=== PATIENT | female | born 1950 | race Caucasian/White ===

== ENCOUNTER 2017-12-09 08:25 | Emergency (ER) | payer OTHER ==
[~2017-12-09] VITALS: Ht 160 cm; Wt 67.1 kg
[~2017-12-09 08:25] MED LIST: AUGMENTIN 875 M1 TAB PO; CYCLOBENZAPRINE10 M1 PO; ESCITALOPRAM OX10 MG PO; FLEXERIL10 MG PO; LEVOTHYROXINE150 MCG PO; LIDODERM 5% PAT1 PAT OTHER; MOBIC15 MG PO; PRAVASTATIN SOD40 M2 PO; TRAZODONE HCL50 M1 PO; VICODIN 5-3001 EACH PO; ZOFRAN ODT4 M1 SL
--- NOTE | 2017-12-09 09:08 | ED HEAD/FACIAL INJ COMPLAINT ---
History of Present Illness General Chief Complaint: Fall Stated Complaint: FALL THIS AM/HEAD AND NOSE PAIN Source: patient Exam Limitations: no limitations Vital Signs & Intake/Output Vital Signs & Intake/Output Vital Signs Date Time Temp Pulse Resp B/P B/P Pulse O2 O2 Flow FiO2 Mean Ox Delivery Rate 12/09 0833 98.5 81 20 153/79 96 Room Air Allergies Coded Allergies: Sulfa (Sulfonamide Antibiotics) (Mild, HIVES 03/25/17) morphine (Mild, GI DISTRESS 03/25/17) Reconcile Medications Escitalopram Oxalate 10 MG TABLET 1 TAB PO DAILY MENTAL HEALTH (Reported) Levothyroxine Sodium 150 MCG TABLET 1 TAB PO DAILY AC THYROID (Reported) Ondansetron (Zofran Odt) 4 MG TAB.RAPDIS 1 TAB SL TID PRN nausea Pravastatin Sodium 40 MG TABLET 1 TAB PO QPM CHOLESTEROL (Reported) Trazodone HCl 50 MG TABLET 0.5 TAB PO QPM SLEEP (Reported) Triage Note: PT STATES SHE WAS HAVING A NIGHTMARE AT 0100 AND THRASHED HERSELF OUT OF THE BED ONTO THE CONCRETE FLOOR INJURING FOREHEAD, NOSE AND RIGHT EYE. PT STATES HER NOSE BLED QUITE A BIT X 1.5 HOURS. PT DENIES BLOOD THINNERS, DENIES LOC. 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 PT C/O H/A AND NAUSEA Triage Nurses Notes Reviewed? yes HPI: Patient is a 67-year-old female who presents today after a fall from bed with facial and right orbital trauma. She reports that she has nightmares, and that this happened previously approximately 8 months ago. She was having similar nightmares last night overnight and reports that she "thrashes" in bed, which is her reason for falling. This morning, she fell from bed and struck her face on her painted concrete floor. She has been placing pillows on the floor to prevent this type of injury, but unfortunately missed the pillows this morning. She experienced epistaxis and pain around the right orbit. Upon my initial encounter the patient is generally nontoxic and well-appearing, except for obvious facial trauma. She has right-sided periorbital ecchymosis and swelling over the nasal bridge. She is not on blood thinners and reports epistaxis and headache but no confusion or other neurologic symptoms. Past History Travel History Traveled to [place] past 21 day No Medical History Any Pertinent Medical History? see below for history Neurological: MENINGEOMA IN BRA[place] EENT: allergies Cardiovascular: hypertension Respiratory: NONE Gastrointestinal: NONE Hepatic: NONE Renal: NONE Musculoskeletal: NONE Psychiatric: NONE Endocrine: hypothyroidism Cancer(s): BRAIN STEM MENINGIOMA Tetanus Vaccine: 01/20/15 Surgical History Surgical History: non-contributory Psychosocial History Who do you live with Daughter Services at Home None What is your primary language Chadian Tobacco Use: Current Daily Use Daily Tobacco Use Amount/Type: => 5 Cigarettes daily ETOH Use: denies use Illicit Drug Use: denies illicit drug use Family History Hx Contributory? No Review of Systems Review of Systems Constitutional: Reports: see HPI. Denies: malaise, weakness. EENTM: Reports: see HPI, eye pain, epistaxis, nasal pain. Denies: blurred vision, double vision, visual changes, eye drainage, eye tearing, mouth pain, tooth pain. Respiratory: Reports: no symptoms. Cardiovascular: Reports: no symptoms. GI: Reports: no symptoms. Genitourinary: Reports: no symptoms. Musculoskeletal: Reports: no symptoms. Skin: Reports: no symptoms. Neurological/Psychological: Reports: see HPI, headache. Denies: ataxia, cognitive dysfunction, confusion, paresthesia. Hematologic/Endocrine: Reports: no symptoms. Immunologic/Allergic: Reports: no symptoms. All Other Systems: Reviewed and Negative Physical Exam Physical Exam General Appearance: well developed/nourished, no apparent distress, alert, awake Cranial Nerves: normal hearing, normal speech, PERRL Comments: General: The patient is grossly stable from a hemodynamic standpoint, in no acute distress. HEENT: There is obvious right-sided periorbital ecchymosis consistent with a unilateral raccoon eye versus direct hemorrhage from the trauma. Tenderness to the bony orbit and to the nasal bridge. Resolved epistaxis. Ophtho: Extraocular motion is painless and intact, without proptosis, visual changes, blurred vision subjectively, or evidence of direct eye trauma. Pupils are equal and reactive to light laterally with no afferent pupillary defect. The sclera are noninjected, and there is no obvious discharge. Neck: Mild cervical spine tenderness unable to clinically clear by Nexus or Mer[place] criteria. Respiratory: The lungs are clear and equal to auscultation bilaterally without wheezes, rales, or rhonchi. The patient exhibits no signs of labored breathing. Cardiac: There is no major instability or pain on palpation of the anterior chest; no crepitus or palpable rib fractures. Regular rhythm and non- tachycardic. No obvious JVD. GI: Examination of the abdomen reveals no significant focal tenderness in any of the four quadrants. There is negative Sanchez sign, negative Balderas-Wang sign, and no signs of peritonitis whatsoever on percussion or deep palpation. The skin is intact with no sign of trauma. : Deferred. Neuro: The patient is oriented to person, place, time, and situation, with no obvious focal motor deficits or significantly distracting injuries. There were no sensory deficits, and the patient exhibit purposeful movement of all 4 extremities. Cranial nerves II through XII are intact, and gait is normal. Behavioral: Cooperative and calm. Dermatologic: Dermatologic examination reveals no significant ecchymosis, lacerations, abrasions, or other sequelae of trauma. Progress Differential Diagnosis: corneal abrasion, c-spine injury, facial fracture, globe injury, ICH, orbit fracture, skull fracture Plan of Care: Current Medications Sig/Phan Start time Last Medication Dose Stop Time Status Admin Ibuprofen 800 MG ONCE ONE 12/09 1015 UNVr (Motrin) 12/09 1016 Comments: Patient presented today after a fall from bed with obvious facial trauma. She denied dental trauma and had no loose teeth. No blood thinners, but given her age was concern for intracranial hemorrhage. CT scan of the head, maxillofacial bones, and cervical spine to rule out occult injury. Thankfully, these results were negative as documented below except for an acute but nondisplaced nasal bone fracture. Patient's trauma and medical screening examination otherwise negative, and she was stable at time of discharge. IMPRESSION: There is swelling of the right frontal scalp. The underlying calvarium is intact. No acute intracranial hemorrhage. A heavily calcified meningioma arising from the undersurface of the right tentorial leaflet has not substantially changed when compared to the previous CT scan of the head from 11/26/2012. Mass effect within the right cerebellopontine angle cistern has remained unchanged. Face: There is an acute nondisplaced fracture of the right nasal bone. Cervical spine: Chronic changes of an anterior cervical discectomy and fusion with a plate and screw hardware construct extending from C4 to C6. 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 No acute fracture and no traumatic subluxation. Slight anterolisthesis of C2 on C3 and C3 on C4 related to chronic facet degenerative changes at these 2 levels. Of note there is centrilobular emphysema within the apices of both lungs and a few pulmonary nodules measuring up to 0.6 cm in diameter. A follow-up CT scan of the chest should be obtained at 6-12 months to evaluate the stability of these nodules and an optional subsequent CT scan of the chest can be obtained at 18-24 months. DICTATED BY: Rocio ARRIAGA,Philip Walters DATE/TIME DICTATED:12/09/17922 Departure Departure Time of Disposition: 1004 Disposition: HOME OR SELF CARE Condition: Stable Clinical Impression Primary Impression: Nasal bone fracture Qualifiers: Encounter type: initial encounter Fracture type: closed Qualified Code: S02.2XXA - Fracture of nasal bones, initial encounter for closed fracture Secondary Impressions: Head injury due to trauma Qualifiers: Encounter type: initial encounter Qualified Code: S09.90XA - Unspecified injury of head, initial encounter Periorbital ecchymosis of right eye Qualifiers: Encounter type: initial encounter Qualified Code: S00.11XA - Contusion of right eyelid and periocular area, initial encounter Referrals: Shani ARRIAGA,Jean-Claude Suazo (PCP/Family) Additional Instructions: Your CT scans of the brain, facial bones, and cervical spine showed only a nasal bone fracture which was still in good alignment, and thankfully no other traumatic injury. Please follow-up with your primary physician for any ongoing headache or other symptoms, and possibly for referral back to a therapist to discuss your nightmares which seem to keep causing these falls. Use Tylenol or Motrin for your pain going forward. Departure Forms: Customer Survey General Discharge Information
--- NOTE | 2017-12-09 09:41 | CT SCAN REPORT ---
EXAMINATION: CT HEAD, FACE, AND CERVICAL SPINE WITHOUT CONTRAST. CLINICAL INFORMATION: Fall from bed. Swelling and pain. Headache. COMPARISON: CT head 11/26/2012. TECHNIQUE: Residence Counselor images were obtained. CT acquisition of the head, face, and cervical spine was performed without intravenous administration of contrast. Data was reformatted into multiplanar images at the acquisition workstation. DLP: 1693.81 mGy-cm. FINDINGS: Head: There is swelling of the right frontal scalp. The underlying calvarium is intact. No acute skull base fracture. Mastoid air cells and middle ear cavities are well-aerated. There is no acute intracranial hemorrhage or abnormal axial collection. Rodriguez-white matter differentiation is grossly preserved and there is no evidence of acute territorial infarct. Incidentally there is a calcified dural metastases based mass along the undersurface of the right tentorial leaflet that bulges into the right cerebellopontine angle cistern. This finding has remained essentially unchanged when compared to CT scan of the head from 11/26/2012 and most likely represents a meningioma. Face: There is acute no displaced fracture of the right nasal bone. Mild associated soft tissue swelling. Zygomatic arches, lamina papyracea, orbital floors, anterior processes are intact. The mandible is intact. No temper medically joint dislocation. No evidence of a retained radiodense foreign body. The nasal septum deviates the left and there is a prominent leftward projecting nasal septal spur the contacts the medial surface of the left inferior nasal turbinate. Mild left maxillary infundibular narrowing. The nasal cavity and paranasal sinuses are otherwise unremarkable with no evidence of active paranasal sinus disease. Major paranasal sinus drainage pathways are grossly patent. Cervical spine: There are chronic changes of an anterior cervical discectomy and fusion with a plate and screw hardware construct extending from C4 to C6. There is junctional spondylosis above and below the fused segments with narrowing of the joint space, sclerotic degenerative endplate changes, and disc osteophyte spurring at C3-C4 and C6-C7. Slight anterolisthesis of C2 on C3 and C3 on C4 that appears to be related to facet degenerative changes at these 2 levels. No evidence of acute fracture and no abnormal prevertebral soft tissue swelling. Grossly no evidence of canal compromise. Soft tissues of the neck are unremarkable. There is centrilobular emphysema visualized within the apices of both lungs. A few small pulmonary nodules are visualized within both lungs measuring up to 0.6 cm in diameter. IMPRESSION: There is swelling of the right frontal scalp. The underlying calvarium is intact. No acute intracranial hemorrhage. A heavily calcified meningioma arising from the undersurface of the right tentorial leaflet has not substantially changed when compared to the previous CT scan of the head from 11/26/2012. Mass effect within the right cerebellopontine angle cistern has remained unchanged. Face: There is an acute nondisplaced fracture of the right nasal bone. Cervical spine: Chronic changes of an anterior cervical discectomy and fusion with a plate and screw hardware construct extending from C4 to C6. 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 No acute fracture and no traumatic subluxation. Slight anterolisthesis of C2 on C3 and C3 on C4 related to chronic facet degenerative changes at these 2 levels. Of note there is centrilobular emphysema within the apices of both lungs and a few pulmonary nodules measuring up to 0.6 cm in diameter. A follow-up CT scan of the chest should be obtained at 6-12 months to evaluate the stability of these nodules and an optional subsequent CT scan of the chest can be obtained at 18-24 months.
[2017-12-09 10:13] VITALS: BP 136/84
== END 2017-12-09 10:13 ==
LOC: ERH 08:25
DX: S02.2XXA Fracture of nasal bones, initial encounter for closed fracture (principal); S09.90XA Unspecified injury of head, initial encounter; S05.11XA Contusion of eyeball and orbital tissues, right eye, initial encounter; W06.XXXA Fall from bed, initial encounter; Y92.003 Bedroom of unspecified non-institutional (private) residence as the place of occurrence of the external cause; Y93.89 Activity, other specified